=== PATIENT | female | born 1950 | race American Indian/Alaskan Native ===

== ENCOUNTER 2017-09-21 13:23 | Outpatient (CLI) | payer MEDICAID ==
--- NOTE | 2017-09-21 14:45 | XRay Report ---
XRAY RIGHT SHOULDER THREE VIEWS: 09/21/17 13:23:00 CLINICAL: Right shoulder pain. COMPARISON: 01/13/16 FINDINGS: The examination was performed with the patient in a wheelchair. No fracture or dislocation. Glenohumeral joint arthritis is worse with apparent complete loss of the joint space. An inferior humeral osteophyte is unchanged compared to the prior exam. Status post rotator cuff repair with a fixation screw in the superolateral humerus. Mild to moderate acromioclavicular joint arthritis. No fracture or dislocation. No bone lesion. Normal soft tissues. IMPRESSION: Worsened glenohumeral joint arthritis status post rotator cuff repair. Mild to moderate acromioclavicular joint arthritis.
== END 2017-09-21 13:24 | disposition home or self-care (01) ==
LOC: SPVIMAG 13:23
PROVIDERS: ATTEND Orthopaedic Surgery Sports Medicine
DX: M19.011 Primary osteoarthritis, right shoulder (principal); Z98.890 Other specified postprocedural states